=== PATIENT | female | born 1980 | race Caucasian/White ===

== ENCOUNTER 2020-06-26 14:07 | Emergency (ER) | payer OTHER ==
[2020-06-26] MEDS ORDERED: IPRAT-ALBUT 0.5-3 ML INH (16:05)
== END 2020-06-26 16:15 | disposition home or self-care (01) ==
LOC: ER1 14:07
DX: J68.0 Bronchitis and pneumonitis due to chemicals, gases, fumes and vapors (principal); I10 Essential (primary) hypertension; Z88.0 Allergy status to penicillin; Z88.2 Allergy status to sulfonamides; Z88.1 Allergy status to other antibiotic agents; Z88.8 Allergy status to other drugs, medicaments and biological substances
CPT/HCPCS: 71046; 93005; 94664; 94760; 96374; 99285; J1100

== ENCOUNTER → 2021-02-14 | Outpatient (CLI) | payer OTHER ==
[~2021-02-14] MED LIST: IPRAT-ALBUT 0.5-3 ML INH
== END ==
LOC: KOH-I 11:05
DX: M25.551 Pain in right hip (principal); M25.552 Pain in left hip; M47.816 Spondylosis without myelopathy or radiculopathy, lumbar region
CPT/HCPCS: 73522

== ENCOUNTER → 2021-09-28 | Outpatient (CLI) | payer OTHER | LOC: KOH-I 08:28 | DX: M25.551 Pain in right hip (principal) | CPT/HCPCS: 73721 ==